=== PATIENT | female | born 1985 | race Asian ===

== ENCOUNTER 2017-02-11 02:00 | Inpatient (IN) | payer SELFPAY ==
[~2017-02-11] VITALS: Ht 139.7 cm; Wt 72.6 kg
[2017-02-11] MEDS ORDERED: LR 500 ML IV ONE ×2 (02:06→03:45)
[2017-02-11] MEDS ORDERED: LR 1,000 ML IV ONE (02:06)
[2017-02-11] MEDS ORDERED: OXYTOCIN/NORMAL SALINE 1,000 ML IV SCH ×2 (02:06→16:08)
[2017-02-11] MEDS ORDERED: TERBUTALINE SULFATE 1 MG/ML VIAL SUBCUT ONE (02:15)
[2017-02-11] MEDS ORDERED: NALBUPHINE HCL 10 MG/ML AMP IVP PRN (02:15)
[2017-02-11] MEDS ORDERED: NALBUPHINE HCL 10 MG/ML AMP ONE (02:20)
[2017-02-11 02:40] LABS: HEMATOCRIT 39.2 % (36-48); HEMOGLOBIN 13.2 g/dL (12.0-16.0); MEAN CORPUSCULAR HEMOGLOBIN 31 pg (27-31); MEAN CORPUSCULAR HGB CONC 34 % (32-36); MEAN CORPUSCULAR VOLUME 94 fL (79.0-98.0); PLATELET COUNT (AUTO) 241 K/uL (130-430); RED CELL DISTRIBUTION WIDTH 13.3 % (9.0-15.0); WHITE BLOOD COUNT (AUTO) 21.4 K/uL (4.8-10.8)
[2017-02-11] MEDS: LR 1,000 ML IV SCH ×2 (02:48→07:30)
[2017-02-11 03:20] LABS: ATYPICAL LYMPHOCYTES % 0 % (0-0); BAND % (MANUAL) 7 % (0-6); BASOPHILS % (MANUAL) 0 % (0-2); EOSINOPHILS % (MANUAL) 0 % (0-7); LYMPHOCYTES % (MANUAL) 3 % (20-46); MONOCYTES % (MANUAL) 2 % (0-11)
[2017-02-11] MEDS ORDERED: FENT2mCg/mL-ROPIVA0.2%/NS EPID 150 ML EP ONE (03:22)
[2017-02-11] MEDS ORDERED: fentaNYL CITRATE/PF 100 MCG/2 ML AMP ONE (03:22)
[2017-02-11] MEDS ORDERED: ePHEDrine sulfate 50 MG/ML VIAL IVP PRN (03:45)
[2017-02-11] MEDS ORDERED: FENT2mCg/mL-ROPIVA0.2%/NS EPID 150 ML EP SCH (03:45)
[2017-02-11] MEDS ORDERED: fentaNYL CITRATE/PF 100 MCG/2 ML AMP EP ONE (03:45)
[2017-02-11] MEDS ORDERED: AMPICILLIN SODIUM 2 GM in NS 100 ML IV ONE (07:30)
[2017-02-11 07:33] VITALS: BP_SYST 124
[2017-02-11] MEDS ORDERED: AMPICILLIN SODIUM 2 GM VIAL ONE (08:14)
[2017-02-11] MEDS ORDERED: AMPICILLIN SODIUM 1 GM in NS 50 ML IV SCH (11:00)
[2017-02-11] MEDS ORDERED: OXYTOCIN/NORMAL SALINE 1,000 ML IV ONE (16:08)
[2017-02-11] MEDS ORDERED: HYDROCORTISONE 0.5%, 28.35 GM TOPICAL CREAM TP PRN (16:15)
[2017-02-11] MEDS ORDERED: DERMOPLAST SPRAY TP PRN (16:15)
[2017-02-11] MEDS ORDERED: ANUSOL 1 EA SUPP.RECT (PREPARATION H) RC PRN (16:15)
[2017-02-11] MEDS ORDERED: GLYCERIN/WITCH HAZEL (TUCKS PADS) TP PRN (16:15)
[2017-02-11] MEDS ORDERED: DOCUSATE SODIUM 100 MG CAPSULE PO PRN (16:15)
[2017-02-11] MEDS ORDERED: SENNOSIDES/DOCUSATE SODIUM 1 TAB TABLET(SENOKOT-S) PO PRN (16:15)
[2017-02-11] MEDS ORDERED: OXYCODONE/ACETAMINOPHEN 5-325 TABLET PO PRN ×2 (16:15)
[2017-02-11] MEDS ORDERED: METHYLERGONOVINE MALEATE 0.2 MG TABLET PO PRN (16:15)
[2017-02-11] MEDS ORDERED: LANOLIN 7 GM OINT. TP PRN (16:15)
[2017-02-11] MEDS: IBUPROFEN 600 MG TABLET PO SCH (18:12)
[2017-02-11] MEDS ORDERED: TEMAZEPAM 15 MG CAPSULE PO PRN (21:00)
[2017-02-12] MEDS: IBUPROFEN 600 MG TABLET PO SCH ×4 (00:14→17:48)
[2017-02-12 06:32] LABS: HEMATOCRIT 35.8 % (36-48); HEMOGLOBIN 12.1 g/dL (12.0-16.0)
[2017-02-12] MEDS ORDERED: ROPIVACAINE 40 MG/20 ML AMP EP ONE (22:59)
== END 2017-02-12 23:00 | disposition home or self-care (01) | DRG 775 ==
LOC: SPU 02:00
PROVIDERS: ADMIT Specialist; ATTEND Specialist
PROC: 10E0XZZ Delivery of Products of Conception, External Approach (ICD-10-PCS; principal; 2017-02-11)
PROC: 3E0S3CZ (ICD-10-PCS; 2017-02-11)
PROC: 00HU33Z Insertion of Infusion Device into Spinal Canal, Percutaneous Approach (ICD-10-PCS; 2017-02-11)
DX: O99.214 Obesity complicating childbirth (principal); E66.9 Obesity, unspecified; Z37.0 Single live birth; Z3A.38 38 weeks gestation of pregnancy; Z68.37 Body mass index [BMI] 37.0-37.9, adult
CPT/HCPCS: 36415; 85007; 85018-TC; 85027; 86592; 86886; 86900; 86901; J0290; J2300; J2590; J2795; J3010; J7120